=== PATIENT | female | born 1945 | race Caucasian/White ===

== ENCOUNTER 2018-05-14 16:52 | Emergency (ER) | payer MEDICAID ==
[2018-05-14] MEDS: IPRATROPIUM (NEB) 0.5 MG/2.5 ML AMP NEB (17:54)
[2018-05-14] MEDS: ALBUTEROL 0.083% (NEB) 2.5 MG/3 ML AMP NEB (17:54)
== END 2018-05-14 18:53 | disposition home or self-care (01) ==
LOC: FTE 16:52
DX: R05 Cough (principal)
CPT/HCPCS: 71045; 87400; 94664; 99284-25